=== PATIENT | female | born 1950 | race Caucasian/White ===

== ENCOUNTER 2023-05-01 20:27 | Inpatient (IN) | payer MEDICARE ==
[~2023-05-01] VITALS: Ht 162.6 cm; Wt 60.3 kg
[2023-05-01] MEDS ORDERED: NITROFURANTOIN/NITROFURAN MAC 100 MG CAPSULE PO ONE ×3 (21:00→22:31)
[2023-05-01] MEDS ORDERED: ROSU20TA2 (21:15)
[2023-05-01] MEDS ORDERED: QUET50TA (21:15)
[2023-05-01] MEDS ORDERED: ALEN1TAB3 (21:15)
[2023-05-01] MEDS ORDERED: SERT100T (21:15)
[2023-05-01 23:00] VITALS: BP 151/78; TEMP 98.1; O2SAT 100
[2023-05-01] MEDS ORDERED: MAG HYDROX/AL HYDROX/SIMETH 30 ML LIQUID UDC PO PRN (23:45)
[2023-05-01] MEDS ORDERED: MAGNESIUM HYDROXIDE 30 ML LIQUID UDC PO PRN (23:45)
[2023-05-01] MEDS ORDERED: ACETAMINOPHEN 325 MG TABLET PO PRN (23:45)
[2023-05-02] MEDS: CLONAZEPAM 0.5 MG TABLET PO PRN ×2 (00:20→21:52)
[2023-05-02 07:30] VITALS: BP 129/70; TEMP 98; O2SAT 98
[2023-05-02 08:40] LABS: ALBUMIN 3.9 g/dL (3.4-5.0); BILIRUBIN,TOTAL 0.6 mg/dL (0.2-1.0); CREATININE 0.6 mg/dL (0.6-1.3); TOTAL PROTEIN, SERUM 7.4 g/dL (6.4-8.2)
[2023-05-02] MEDS: SERTRALINE HCL 100 MG TABLET PO SCH (10:58)
[2023-05-02] MEDS: QUETIAPINE FUMARATE 25 MG TABLET PO SCH ×2 (10:58→16:23)
[2023-05-02] MEDS ORDERED: ALEN70TA80 PO (14:25)
[2023-05-02] MEDS ORDERED: CEPH500T PO (14:39)
[2023-05-02 15:41] VITALS: BP 95/46; TEMP 98.2; O2SAT 96
[2023-05-02 19:58] VITALS: BP 117/57; TEMP 98.1; O2SAT 98
[2023-05-03 07:45] VITALS: BP 138/65; TEMP 98.4; O2SAT 98
[2023-05-03] MEDS: SERTRALINE HCL 100 MG TABLET PO SCH (08:47)
[2023-05-03] MEDS: QUETIAPINE FUMARATE 25 MG TABLET PO SCH (08:47)
[2023-05-03 16:08] VITALS: BP 125/72; TEMP 98.1; O2SAT 100
[2023-05-03 20:00] VITALS: BP 126/73; TEMP 97.1; O2SAT 97
[2023-05-03] MEDS ORDERED: QUETIAPINE FUMARATE 25 MG TABLET PO ONE (21:00)
[2023-05-04 08:16] VITALS: BP 151/76; TEMP 98.1; O2SAT 98
[2023-05-04] MEDS: QUETIAPINE FUMARATE 25 MG TABLET PO SCH (08:54)
[2023-05-04] MEDS: SERTRALINE HCL 100 MG TABLET PO SCH (08:54)
[2023-05-04 16:20] VITALS: BP 152/84; TEMP 98; O2SAT 100
[2023-05-04 19:50] VITALS: BP 144/63; TEMP 98.1; O2SAT 96
[2023-05-04] MEDS ORDERED: QUETIAPINE FUMARATE 25 MG TABLET PO SCH (21:00)
[2023-05-04] MEDS: TEMAZEPAM 7.5 MG CAPSULE PO PRN (22:29)
[2023-05-05 07:54] VITALS: BP 118/76; TEMP 98.1; O2SAT 98
[2023-05-05] MEDS: SERTRALINE HCL 100 MG TABLET PO SCH (08:47)
[2023-05-05] MEDS: QUETIAPINE FUMARATE 25 MG TABLET PO SCH (08:47)
[2023-05-05 16:04] VITALS: BP 126/67; TEMP 98; O2SAT 98
[2023-05-05 20:02] VITALS: BP 133/74; TEMP 98.1; O2SAT 98
[2023-05-05] MEDS: QUETIAPINE FUMARATE 100 MG TABLET PO SCH (20:40)
[2023-05-06] MEDS: SERTRALINE HCL 100 MG TABLET PO SCH (09:32)
[2023-05-06] MEDS: QUETIAPINE FUMARATE 25 MG TABLET PO SCH (09:32)
[2023-05-06 09:42] VITALS: BP 133/69; TEMP 98.4; O2SAT 98
[2023-05-06 15:33] VITALS: BP 117/66; TEMP 98; O2SAT 96
[2023-05-06 19:44] VITALS: BP 130/66; TEMP 98.2; O2SAT 97
[2023-05-06] MEDS: QUETIAPINE FUMARATE 100 MG TABLET PO SCH (20:38)
[2023-05-07 07:49] VITALS: BP 122/65; TEMP 98.2; O2SAT 99
[2023-05-07] MEDS: QUETIAPINE FUMARATE 25 MG TABLET PO SCH (08:49)
[2023-05-07] MEDS: SERTRALINE HCL 100 MG TABLET PO SCH (08:50)
[2023-05-07 15:29] VITALS: BP 140/59; TEMP 98.2; O2SAT 99
[2023-05-07 20:00] VITALS: BP 135/65; TEMP 98.4; O2SAT 96
[2023-05-07] MEDS: QUETIAPINE FUMARATE 100 MG TABLET PO SCH (20:13)
[2023-05-08 08:00] VITALS: BP 137/69; TEMP 97.6; O2SAT 98
[2023-05-08] MEDS: QUETIAPINE FUMARATE 25 MG TABLET PO SCH (09:52)
[2023-05-08] MEDS: SERTRALINE HCL 100 MG TABLET PO SCH (09:52)
[2023-05-08 16:09] VITALS: BP 135/77; TEMP 97.6; O2SAT 98
[2023-05-08 20:08] VITALS: BP 138/72; TEMP 98.1; O2SAT 97
[2023-05-08] MEDS: QUETIAPINE FUMARATE 100 MG TABLET PO SCH (20:16)
[2023-05-08] MEDS: ATORVASTATIN 40 MG TABLET PO SCH (20:16)
[2023-05-09] MEDS: ALENDRONATE SODIUM 70 MG TABLET PO SCH (06:16)
[2023-05-09 08:14] VITALS: BP 134/70; TEMP 98.2; O2SAT 98
[2023-05-09] MEDS: SERTRALINE HCL 100 MG TABLET PO SCH (08:29)
[2023-05-09] MEDS: QUETIAPINE FUMARATE 25 MG TABLET PO SCH (08:29)
[2023-05-09 16:27] VITALS: BP 138/60; TEMP 98.2; O2SAT 98
[2023-05-09 20:00] VITALS: BP 147/64; TEMP 97.4; O2SAT 99
[2023-05-09] MEDS: ATORVASTATIN 40 MG TABLET PO SCH (20:34)
[2023-05-09] MEDS: QUETIAPINE FUMARATE 100 MG TABLET PO SCH (20:34)
[2023-05-10] MEDS: TEMAZEPAM 7.5 MG CAPSULE PO PRN (00:48)
[2023-05-10 08:16] VITALS: BP 140/63; TEMP 97.9; O2SAT 98
[2023-05-10] MEDS: QUETIAPINE FUMARATE 25 MG TABLET PO SCH (08:44)
[2023-05-10] MEDS: SERTRALINE HCL 100 MG TABLET PO SCH (08:45)
[2023-05-10 16:19] VITALS: BP 124/56; TEMP 98.1; O2SAT 99
[2023-05-10 20:48] VITALS: BP 126/77; TEMP 97.9; O2SAT 97
[2023-05-10] MEDS: QUETIAPINE FUMARATE 100 MG TABLET PO SCH (20:57)
[2023-05-10] MEDS: ATORVASTATIN 40 MG TABLET PO SCH (20:57)
[2023-05-11] MEDS: SERTRALINE HCL 100 MG TABLET PO SCH (08:33)
[2023-05-11] MEDS: risperiDONE 0.5 MG TABLET PO SCH ×2 (08:35→20:24)
[2023-05-11 08:59] VITALS: BP 155/86; TEMP 98; O2SAT 100
[2023-05-11] MEDS ORDERED: risperiDONE 1 MG/ML UDC GT SCH (09:00)
[2023-05-11 16:30] VITALS: BP 157/78; TEMP 98; O2SAT 99
[2023-05-11] MEDS: ATORVASTATIN 40 MG TABLET PO SCH (20:24)
[2023-05-11 20:39] VITALS: BP 151/79; TEMP 98; O2SAT 98
[2023-05-11] MEDS ORDERED: QUETIAPINE FUMARATE 100 MG TABLET PO SCH (21:00)
[2023-05-11] MEDS ORDERED: QUETIAPINE FUMARATE 25 MG TABLET PO SCH (21:00)
[2023-05-12 08:47] VITALS: BP 148/76; TEMP 98.1; O2SAT 98
[2023-05-12] MEDS: risperiDONE 1 MG TABLET PO SCH ×2 (08:48→21:47)
[2023-05-12] MEDS: SERTRALINE HCL 100 MG TABLET PO SCH (08:48)
[2023-05-12] MEDS ORDERED: risperiDONE 0.5 MG TABLET PO SCH (09:00)
[2023-05-12 16:14] VITALS: BP 115/57; TEMP 98; O2SAT 98
[2023-05-12 20:00] VITALS: BP 125/72; TEMP 98; O2SAT 99
[2023-05-12] MEDS: ATORVASTATIN 40 MG TABLET PO SCH (21:47)
[2023-05-13 07:30] VITALS: BP 139/83; TEMP 98; O2SAT 96
[2023-05-13] MEDS: risperiDONE 1 MG TABLET PO SCH ×2 (08:40→21:00)
[2023-05-13] MEDS: SERTRALINE HCL 100 MG TABLET PO SCH (08:41)
[2023-05-13 15:39] VITALS: BP 98/49; TEMP 98; O2SAT 100
[2023-05-13 20:00] VITALS: BP 122/67; TEMP 97.6; O2SAT 97
[2023-05-13] MEDS: ATORVASTATIN 40 MG TABLET PO SCH (21:00)
[2023-05-14 08:24] VITALS: BP 101/60; TEMP 98; O2SAT 98
[2023-05-14] MEDS: SERTRALINE HCL 100 MG TABLET PO SCH (08:54)
[2023-05-14] MEDS: risperiDONE 1 MG TABLET PO SCH ×2 (08:55→20:14)
[2023-05-14] MEDS: GLUCERNA SHAKE 237 ML CAN PO SCH (08:56)
[2023-05-14] MEDS: DOCUSATE SODIUM 100 MG CAPSULE PO SCH (15:28)
[2023-05-14 15:55] VITALS: BP 91/56; TEMP 98; O2SAT 96
[2023-05-14 20:12] VITALS: BP 134/57; TEMP 98.1; O2SAT 98
[2023-05-14] MEDS: ATORVASTATIN 40 MG TABLET PO SCH (20:14)
[2023-05-15 08:15] VITALS: BP 137/67; TEMP 97.2; O2SAT 98
[2023-05-15] MEDS: risperiDONE 1 MG TABLET PO SCH ×2 (09:27→20:55)
[2023-05-15] MEDS: SERTRALINE HCL 100 MG TABLET PO SCH (09:27)
[2023-05-15] MEDS: DOCUSATE SODIUM 100 MG CAPSULE PO SCH (09:28)
[2023-05-15] MEDS: GLUCERNA SHAKE 237 ML CAN PO SCH (09:40)
[2023-05-15 20:00] VITALS: BP 107/57; TEMP 97.4; O2SAT 99
[2023-05-15] MEDS: ATORVASTATIN 40 MG TABLET PO SCH (20:55)
[2023-05-16] MEDS: ALENDRONATE SODIUM 70 MG TABLET PO SCH (06:14)
[2023-05-16 08:04] VITALS: BP 107/55; TEMP 98.2; O2SAT 98
[2023-05-16] MEDS: DOCUSATE SODIUM 100 MG CAPSULE PO SCH (08:37)
[2023-05-16] MEDS: risperiDONE 1 MG TABLET PO SCH (08:38)
[2023-05-16] MEDS: SERTRALINE HCL 100 MG TABLET PO SCH (08:38)
[2023-05-16] MEDS: GLUCERNA SHAKE 237 ML CAN PO SCH (08:39)
== END 2023-05-16 15:50 | DRG 885 ==
LOC: ER 20:37 → GPS 22:24
PROVIDERS: ADMIT Psychiatry & Neurology Psychiatry; ATTEND Internal Medicine
DX: F33.2 Major depressive disorder, recurrent severe without psychotic features (principal); R45.851 Suicidal ideations; N30.90 Cystitis, unspecified without hematuria; E78.5 Hyperlipidemia, unspecified; M85.80 Other specified disorders of bone density and structure, unspecified site; Z66 Do not resuscitate; Z79.899 Other long term (current) drug therapy; Z60.8 Other problems related to social environment; K59.00 Constipation, unspecified
CPT/HCPCS: 36415; J8499